=== PATIENT | female | born 1955 | race Caucasian/White ===

== ENCOUNTER 2018-07-01 15:01 | Inpatient (IN) | payer MEDICARE, OTHER, BC, MEDICAID | END 2018-07-03 10:30 | disposition home or self-care (01) | LOC: ER 15:01 → PCU 3S 07-02 07:25 → ED HOLD 20:42 | DX: I20.9 Angina pectoris, unspecified (principal); I21.A1 Myocardial infarction type 2; I45.10 Unspecified right bundle-branch block; J44.9 Chronic obstructive pulmonary disease, unspecified ==